=== PATIENT | male | born 1965 | race African-American/Black ===

== ENCOUNTER 2021-04-09 10:51 | Emergency (ER) | payer MEDICAID ==
[~2021-04-09] VITALS: Ht 175.3 cm; Wt 127.0 kg
[~2021-04-09 10:51] MED LIST: SPIR25TA PO
[2021-04-09 11:09] VITALS: BP 187/119
[2021-04-09 14:23] LABS: BASOPHILS % 0.9 % (0.0-2.0); EOSINOPHILS % 0.2 % (0.0-5.0); LYMPHOCYTES % 22.8 % (20.0-50.0); MEAN CORPUSCULAR HEMOGLOBIN 27.9 pg (28.0-32.0); MEAN CORPUSCULAR VOLUME 85.8 fL (80.0-94.0); MEAN PLATELET VOLUME 9.1 fl (7.4-10.4); MONOCYTES % 10.9 % (2.0-8.0); NEUTROPHILS % 65.2 % (40.0-76.0); PLATELET 190 x1000/uL (130-400); RED BLOOD CELL COUNT 5.01 mill/uL (4.7-6.1); RED CELL DISTRIBUTION WIDTH 15.2 % (11.6-14.6)
[2021-04-09 14:31] LABS: CHLORIDE 107 mEq/L (98-107)
[2021-04-09] MEDS ORDERED: FURO-151 MT (15:36)
[2021-04-09 20:46] LABS: CLARITY URINE CLOUDY (CLEAR); COLOR URINE DARK YELLOW (YELLOW); KETONES URINE TRACE (NEGATIVE); LEUKOCYTE ESTERASE URINE 1+ (NEGATIVE); NITRITE URINE NEGATIVE (NEGATIVE); OCCULT BLOOD URINE 1+ (NEGATIVE); PH URINE 5.5 (4.5-8.0); PROTEIN URINE 3+ (NEGATIVE); SPECIFIC GRAVITY URINE 1.027 (1.005-1.030)
== END 2021-04-09 15:57 | disposition left against medical advice (07) ==
LOC: ER 10:51
DX: I11.0 Hypertensive heart disease with heart failure (principal); I50.9 Heart failure, unspecified; E11.9 Type 2 diabetes mellitus without complications; I10 Essential (primary) hypertension; Z76.0 Encounter for issue of repeat prescription
CPT/HCPCS: 36415; 71045; 80053; 81003; 83880; 85025; 93005; 99285

== ENCOUNTER 2021-04-27 18:10 | Emergency (ER) | payer MEDICAID ==
[~2021-04-27] VITALS: Ht 175.3 cm; Wt 128.0 kg
[~2021-04-27 18:10] MED LIST changes: +FURO-151 MT
[2021-04-27] MEDS ORDERED: AMLODIPINE 10MG TABLET PO ONE (23:15)
[2021-04-27] MEDS ORDERED: FUROSEMIDE 40MG TABLET PO ONE (23:15)
[2021-04-27 23:46] LABS: BASOPHILS % 1.1 % (0.0-2.0); EOSINOPHILS % 0.4 % (0.0-5.0); HEMATOCRIT. 45.1 % (42.0-52.0); HEMOGLOBIN. 14.7 g/dL (14.0-18.0); LYMPHOCYTES % 47.3 % (20.0-50.0); MEAN CORPUSCULAR HEMOGLOBIN 27.7 pg (28.0-32.0); MEAN CORPUSCULAR VOLUME 84.9 fL (80.0-94.0); MEAN PLATELET VOLUME 9.2 fl (7.4-10.4); MONOCYTES % 10.3 % (2.0-8.0); NEUTROPHILS % 40.9 % (40.0-76.0); PLATELET 217 x1000/uL (130-400); RED BLOOD CELL COUNT 5.31 mill/uL (4.7-6.1); RED CELL DISTRIBUTION WIDTH 16.7 % (11.6-14.6)
[2021-04-28 00:06] LABS: CHLORIDE 107 mEq/L (98-107)
[2021-04-28] MEDS ORDERED: SPIR25TA PO (00:58)
[2021-04-28] MEDS ORDERED: FURO40TA5 MT (00:58)
[2021-04-28] MEDS ORDERED: SPIRONOLACTONE 25MG TABLET PO SCH (01:00)
[2021-04-28] MEDS ORDERED: POTASSIUM CHLORIDE 20MEQ TABLET SR PO ONE (01:15)
[2021-04-28] MEDS ORDERED: CARVEDILOL 3.125 MG TABLET PO ONE (01:30)
[2021-04-28 02:53] VITALS: BP 149/112
== END 2021-04-28 03:04 | disposition home or self-care (01) ==
LOC: ER 18:10
DX: I11.0 Hypertensive heart disease with heart failure (principal); I50.9 Heart failure, unspecified; R00.0 Tachycardia, unspecified; E11.9 Type 2 diabetes mellitus without complications; Z20.822 Contact with and (suspected) exposure to COVID-19; Z91.09 Other allergy status, other than to drugs and biological substances
CPT/HCPCS: 36415; 71045; 80053; 83880; 85025; 87426; 93005; 99285

== ENCOUNTER 2021-10-03 15:09 | Emergency (ER) | payer MEDICAID ==
[~2021-10-03] VITALS: Ht 175.3 cm; Wt 118.0 kg
[~2021-10-03 15:09] MED LIST changes: +CARV25TA47 MT; +FURO40TA5 MT; +LOSA50TA41 MT
[2021-10-03] MEDS ORDERED: FUROSEMIDE 40MG/4ML VIAL IV ONE (18:45)
[2021-10-03 19:04] LABS: BASOPHILS % 0.8 % (0.0-2.0); EOSINOPHILS % 0.6 % (0.0-5.0); HEMATOCRIT. 48.5 % (42.0-52.0); HEMOGLOBIN. 15.5 g/dL (14.0-18.0); LYMPHOCYTES % 39.2 % (20.0-50.0); MEAN CORPUSCULAR HEMOGLOBIN 28.5 pg (28.0-32.0); MEAN CORPUSCULAR VOLUME 89.1 fL (80.0-94.0); MEAN PLATELET VOLUME 9.1 fl (7.4-10.4); MONOCYTES % 9.1 % (2.0-8.0); NEUTROPHILS % 50.3 % (40.0-76.0); PLATELET 196 x1000/uL (130-400); RED BLOOD CELL COUNT 5.45 mill/uL (4.7-6.1); RED CELL DISTRIBUTION WIDTH 16.3 % (11.6-14.6)
[2021-10-03 19:21] LABS: CHLORIDE 109 mEq/L (98-107)
[2021-10-03 19:26] LABS: ETHANOL BLOOD < 10 mg/dL
[2021-10-03 23:00] VITALS: BP 146/100
[2021-10-03] MEDS ORDERED: FURO-151 MT (23:04)
[2021-10-03 23:26] LABS: *AMPHETAMINES SCREEN URINE NEGATIVE (NEGATIVE); *BARBITURATES SCREEN URINE NEGATIVE (NEGATIVE); *BENZODIAZEPINES SCREEN URINE NEGATIVE (NEGATIVE); *COCAINE SCREEN URINE NEGATIVE (NEGATIVE); CANNABINOID URINE SCREEN NEGATIVE (NEGATIVE); METHADONE URINE SCREEN NEGATIVE (NEGATIVE); OPIATES URINE SCREEN NEGATIVE (NEGATIVE); PHENCYCLIDINE URINE SCREEN NEGATIVE (NEGATIVE)
== END 2021-10-03 23:30 | disposition home or self-care (01) ==
LOC: ER 15:09
DX: I11.0 Hypertensive heart disease with heart failure (principal); I50.9 Heart failure, unspecified; J18.9 Pneumonia, unspecified organism; E11.9 Type 2 diabetes mellitus without complications; Z79.899 Other long term (current) drug therapy
CPT/HCPCS: 36415; 71045; 80053; 80305; 80320; 83735; 83880; 84484; 85025; 93005; 96374; 99285; J1940; Z7610; G0480

== ENCOUNTER 2021-10-14 15:20 | Inpatient (IN) | payer MEDICAID ==
[~2021-10-14] VITALS: Ht 177.8 cm; Wt 133.9 kg
[2021-10-15] MEDS ORDERED: FUROSEMIDE 40MG/4ML VIAL IV ONE (00:15)
[2021-10-15 00:31] LABS: BASOPHILS % 0.9 % (0.0-2.0); EOSINOPHILS % 0.9 % (0.0-5.0); HEMATOCRIT. 48.8 % (42.0-52.0); HEMOGLOBIN. 15.6 g/dL (14.0-18.0); LYMPHOCYTES % 43.9 % (20.0-50.0); MEAN CORPUSCULAR HEMOGLOBIN 28.5 pg (28.0-32.0); MEAN CORPUSCULAR VOLUME 89.1 fL (80.0-94.0); MEAN PLATELET VOLUME 9.1 fl (7.4-10.4); MONOCYTES % 9.7 % (2.0-8.0); NEUTROPHILS % 44.6 % (40.0-76.0); PLATELET 204 x1000/uL (130-400); RED BLOOD CELL COUNT 5.47 mill/uL (4.7-6.1); RED CELL DISTRIBUTION WIDTH 15.9 % (11.6-14.6)
[2021-10-15 00:37] LABS: CHLORIDE 102 mEq/L (98-107)
[2021-10-15 01:36] LABS: INR 1.3; PROTHROMBIN TIME 13.6 sec (9.6-11.0)
[2021-10-15 01:42] LABS: *AMPHETAMINES SCREEN URINE NEGATIVE (NEGATIVE); *BARBITURATES SCREEN URINE NEGATIVE (NEGATIVE); *BENZODIAZEPINES SCREEN URINE NEGATIVE (NEGATIVE); *COCAINE SCREEN URINE NEGATIVE (NEGATIVE); CANNABINOID URINE SCREEN NEGATIVE (NEGATIVE); METHADONE URINE SCREEN NEGATIVE (NEGATIVE); OPIATES URINE SCREEN NEGATIVE (NEGATIVE); PHENCYCLIDINE URINE SCREEN NEGATIVE (NEGATIVE)
[2021-10-15] MEDS ORDERED: DIPHENHYDRAMINE 50MG/ML VIAL IV PRN (02:00)
[2021-10-15] MEDS ORDERED: HYDRALAZINE 20MG/ML VIAL IV PRN (02:00)
[2021-10-15] MEDS ORDERED: ONDANSETRON HCL 4MG/2ML INJ IV PRN (02:00)
[2021-10-15] MEDS ORDERED: CLONIDINE 0.1MG TABLET PO PRN (02:00)
[2021-10-15] MEDS ORDERED: ZOLPIDEM TARTRATE 5MG TABLET PO PRN (02:00)
[2021-10-15] MEDS ORDERED: ACETAMINOPHEN 325MG TABLET PO PRN (02:00)
[2021-10-15] MEDS: SODIUM CHLORIDE 0.9% INJ 3ML FLUSH IVF SCH ×3 (05:30→21:29)
[2021-10-15 08:15] VITALS: BP 111/74
[2021-10-15 09:00] VITALS: BP 111/74
[2021-10-15] MEDS ORDERED: FUROSEMIDE 40MG/4ML VIAL IVP SCH (09:00)
[2021-10-15] MEDS ORDERED: SODIUM BICARBONATE 4% (2.4MEQ) 5ML VIAL IV ONE (09:26)
[2021-10-15] MEDS ORDERED: LIDOCAINE HCL/PF 1% 10 MG/ML 5ML VIAL ONE (09:26)
[2021-10-15] MEDS: FUROSEMIDE 40MG/4ML VIAL IVP SCH ×2 (11:31→17:46)
[2021-10-15] MEDS: CARVEDILOL 12.5MG TABLET PO SCH ×2 (11:32→21:00)
[2021-10-15] MEDS: LOSARTAN POTASSIUM 50 MG TABLET PO SCH (11:32)
[2021-10-15] MEDS: POTASSIUM CHLORIDE 20MEQ TABLET SR PO SCH (11:32)
[2021-10-15] MEDS: SPIRONOLACTONE 25MG TABLET PO SCH (11:33)
[2021-10-15 12:00] VITALS: BP 134/92
[2021-10-15 16:00] VITALS: BP 99/71
[2021-10-15] MEDS: METOLAZONE 10MG TABLET PO SCH (17:46)
[2021-10-15] MEDS: ENOXAPARIN 40MG/0.4ML SYR SUBCUT SCH (18:52)
[2021-10-15 20:00] VITALS: BP 103/59
[2021-10-16] VITALS: BP 110/65
[2021-10-16 04:00] VITALS: BP 101/60
[2021-10-16] MEDS: SODIUM CHLORIDE 0.9% INJ 3ML FLUSH IVF SCH ×3 (05:57→21:02)
[2021-10-16] MEDS: FUROSEMIDE 40MG/4ML VIAL IVP SCH ×2 (05:57→18:15)
[2021-10-16] MEDS: ENOXAPARIN 40MG/0.4ML SYR SUBCUT SCH ×2 (05:58→18:14)
[2021-10-16 08:00] VITALS: BP 119/79
[2021-10-16 08:42] LABS: CHLORIDE 101 mEq/L (98-107)
[2021-10-16 08:50] LABS: PHOSPHORUS 3.6 mg/dL (2.5-4.9)
[2021-10-16] MEDS: LOSARTAN POTASSIUM 50 MG TABLET PO SCH (09:00)
[2021-10-16] MEDS: METOLAZONE 10MG TABLET PO SCH (09:30)
[2021-10-16] MEDS: POTASSIUM CHLORIDE 20MEQ TABLET SR PO SCH ×3 (09:33→18:15)
[2021-10-16] MEDS: SPIRONOLACTONE 25MG TABLET PO SCH (09:34)
[2021-10-16] MEDS: CARVEDILOL 12.5MG TABLET PO SCH ×2 (09:34→21:00)
[2021-10-16] MEDS: ACETAMINOPHEN 325MG TABLET PO PRN ×2 (09:51→20:57)
[2021-10-16] MEDS ORDERED: MAGNESIUM 2 G PREMIX 50 ML IV NR (11:30)
[2021-10-16 12:00] VITALS: BP 93/60
[2021-10-16 16:00] VITALS: BP 94/64
[2021-10-16 20:00] VITALS: BP 95/58
[2021-10-17] VITALS (7 sets, daily range): BP systolic 74–113; BP diastolic 49–74
[2021-10-17] MEDS: SODIUM CHLORIDE 0.9% INJ 3ML FLUSH IVF SCH ×3 (06:06→20:43)
[2021-10-17] MEDS: ENOXAPARIN 40MG/0.4ML SYR SUBCUT SCH ×2 (06:06→17:01)
[2021-10-17] MEDS: FUROSEMIDE 40MG/4ML VIAL IVP SCH ×2 (06:06→17:00)
[2021-10-17 08:18] LABS: CHLORIDE 99 mEq/L (98-107)
[2021-10-17] MEDS: LOSARTAN POTASSIUM 50 MG TABLET PO SCH (08:49)
[2021-10-17] MEDS: CARVEDILOL 12.5MG TABLET PO SCH (08:49)
[2021-10-17] MEDS: METOLAZONE 10MG TABLET PO SCH (08:49)
[2021-10-17] MEDS: POTASSIUM CHLORIDE 20MEQ TABLET SR PO SCH ×2 (08:50→17:00)
[2021-10-17] MEDS: SPIRONOLACTONE 25MG TABLET PO SCH (08:50)
[2021-10-17] MEDS ORDERED: MIDODRINE HCL 5MG TABLET PO NR (12:45)
[2021-10-17] MEDS: CARVEDILOL 6.25 MG TABLET PO SCH (20:42)
[2021-10-18 00:09] VITALS: BP 97/70
[2021-10-18 05:34] VITALS: BP 97/65
[2021-10-18] MEDS: FUROSEMIDE 40MG/4ML VIAL IVP SCH ×2 (06:38→17:43)
[2021-10-18] MEDS: ENOXAPARIN 40MG/0.4ML SYR SUBCUT SCH ×2 (06:39→17:43)
[2021-10-18] MEDS: SODIUM CHLORIDE 0.9% INJ 3ML FLUSH IVF SCH ×2 (06:39→14:31)
[2021-10-18 07:09] LABS: CHLORIDE 98 mEq/L (98-107)
[2021-10-18 07:13] LABS: PHOSPHORUS 3.7 mg/dL (2.5-4.9)
[2021-10-18 07:40] LABS: BASOPHILS % 0.8 % (0.0-2.0); EOSINOPHILS % 1.9 % (0.0-5.0); HEMATOCRIT. 45.2 % (42.0-52.0); HEMOGLOBIN. 14.5 g/dL (14.0-18.0); LYMPHOCYTES % 49.2 % (20.0-50.0); MEAN CORPUSCULAR HEMOGLOBIN 28.5 pg (28.0-32.0); MEAN CORPUSCULAR VOLUME 88.5 fL (80.0-94.0); MEAN PLATELET VOLUME 9.4 fl (7.4-10.4); MONOCYTES % 11.1 % (2.0-8.0); PLATELET 176 x1000/uL (130-400); RED BLOOD CELL COUNT 5.11 mill/uL (4.7-6.1); RED CELL DISTRIBUTION WIDTH 15.7 % (11.6-14.6)
[2021-10-18 08:00] VITALS: BP 109/73
[2021-10-18] MEDS: CARVEDILOL 6.25 MG TABLET PO SCH (08:10)
[2021-10-18] MEDS: METOLAZONE 10MG TABLET PO SCH (08:13)
[2021-10-18] MEDS: SPIRONOLACTONE 25MG TABLET PO SCH (08:13)
[2021-10-18] MEDS: POTASSIUM CHLORIDE 20MEQ TABLET SR PO SCH ×2 (08:13→17:43)
[2021-10-18] MEDS ORDERED: LOSARTAN POTASSIUM 25 MG TABLET PO SCH (09:00)
[2021-10-18 12:00] VITALS: BP 98/67
[2021-10-18 16:00] VITALS: BP 105/70
[2021-10-18 20:00] VITALS: BP 112/81
== END 2021-10-18 21:15 | disposition home or self-care (01) | DRG 190 ==
LOC: ER 15:20 → 7WST 10-15 01:20 → ENRESERV 10-15 06:27
PROVIDERS: ADMIT Internal Medicine; ATTEND Internal Medicine
PROC: 0W9G3ZZ Drainage of Peritoneal Cavity, Percutaneous Approach (ICD-10-PCS; principal; 2021-10-15)
DX: I21.4 Non-ST elevation (NSTEMI) myocardial infarction (principal); J96.01 Acute respiratory failure with hypoxia; I50.23 Acute on chronic systolic (congestive) heart failure; I47.2 Ventricular tachycardia; R18.8 Other ascites; I42.8 Other cardiomyopathies; I11.0 Hypertensive heart disease with heart failure; E11.9 Type 2 diabetes mellitus without complications; E66.01 Morbid (severe) obesity due to excess calories; I95.2 Hypotension due to drugs; E80.6 Other disorders of bilirubin metabolism; Z20.822 Contact with and (suspected) exposure to COVID-19; Z87.891 Personal history of nicotine dependence; Z91.09 Other allergy status, other than to drugs and biological substances; Z68.41 Body mass index [BMI] 40.0-44.9, adult
CPT/HCPCS: 36415; 49083; 71045; 80048; 80053; 80305; 82962; 83735; 83880; 84100; 84484; 85025; 87426; 93306; 99291; J1650; J1940; J3475; J3490

== ENCOUNTER 2022-01-23 10:38 | Inpatient (IN) | payer MEDICAID ==
[~2022-01-23] VITALS: Ht 175.3 cm; Wt 142.0 kg
[~2022-01-23 10:38] MED LIST changes: -FURO40TA5 MT
[2022-01-23] MEDS ORDERED: FUROSEMIDE 40MG/4ML VIAL IV ONE (12:30)
[2022-01-23] MEDS ORDERED: ASPIRIN 81MG TABLET PO ONE (12:30)
[2022-01-23] MEDS: NITROGLYCERIN OINT 1GM/INCH UDPKT TD ONE ×2 (12:57→13:20)
[2022-01-23 13:08] LABS: BASOPHILS % 0.8 % (0.0-2.0); EOSINOPHILS % 1.2 % (0.0-5.0); HEMATOCRIT. 48.4 % (42.0-52.0); HEMOGLOBIN. 15.6 g/dL (14.0-18.0); LYMPHOCYTES % 34.4 % (20.0-50.0); MEAN CORPUSCULAR HEMOGLOBIN 29.2 pg (28.0-32.0); MEAN CORPUSCULAR VOLUME 90.3 fL (80.0-94.0); MEAN PLATELET VOLUME 9.2 fl (7.4-10.4); MONOCYTES % 11.9 % (2.0-8.0); NEUTROPHILS % 51.7 % (40.0-76.0); PLATELET 183 x1000/uL (130-400); RED BLOOD CELL COUNT 5.36 mill/uL (4.7-6.1); RED CELL DISTRIBUTION WIDTH 15.9 % (11.6-14.6)
[2022-01-23 13:14] LABS: CHLORIDE 104 mEq/L (98-107)
[2022-01-23] MEDS ORDERED: MAGNESIUM/ALUMINUM HYDROXIDE/SIMETHICONE 30ML UDC PO PRN (18:30)
[2022-01-23] MEDS ORDERED: NA PHOS,M-B/NA PHOS,DI-BA ENEMA 118ML PR PRN (18:30)
[2022-01-23] MEDS ORDERED: DEXTROSE 50% WATER 50ML SYRINGE IV PRN (18:30)
[2022-01-23] MEDS ORDERED: ACETAMINOPHEN 325MG TABLET PO PRN ×2 (18:30)
[2022-01-23] MEDS ORDERED: DOCUSATE SODIUM 100MG CAPSULE PO PRN (18:30)
[2022-01-23] MEDS ORDERED: ONDANSETRON HCL 4MG/2ML INJ IV PRN (18:30)
[2022-01-23] MEDS ORDERED: NITROGLYCERIN 0.4MG TABLET SL SL PRN (18:30)
[2022-01-23] MEDS ORDERED: CLONIDINE 0.1MG TABLET PO PRN (18:30)
[2022-01-23] MEDS ORDERED: IPRATROPIUM/ALBUTEROL 0.5-3(2.5)MG/3ML NEB NEB PRN (18:30)
[2022-01-23] MEDS ORDERED: ZOLPIDEM TARTRATE 5MG TABLET PO PRN (18:30)
[2022-01-23] MEDS ORDERED: KETOROLAC 15MG/ML VIAL IV PRN (18:30)
[2022-01-23] MEDS ORDERED: GUAIFENESIN 200MG/10ML SUGAR FREE UDC PO PRN (18:30)
[2022-01-23 19:15] LABS: T4 FREE 1.05 ng/dL (0.76-1.46)
[2022-01-23 19:43] LABS: VITAMIN B12 SERUM 433 pg/mL (211-911)
[2022-01-23] MEDS: INSULIN LISPRO 100 UNITS/ML SUBCUT SCH (21:00)
[2022-01-23] MEDS: FAMOTIDINE 20MG TABLET PO SCH (21:00)
[2022-01-23] MEDS: FUROSEMIDE 40MG/4ML VIAL IVP SCH (21:55)
[2022-01-23] MEDS: SPIRONOLACTONE 25MG TABLET PO SCH (21:55)
[2022-01-23] MEDS: ENOXAPARIN 30MG/0.3ML SYR SUBCUT SCH (21:56)
[2022-01-23] MEDS: BLOOD SUGAR DIAGNOSTIC STRIP TEST SCH (21:56)
[2022-01-24 00:02] LABS: CREATINE KINASE MB FRACTION 5.8 ng/mL (0.5-3.6)
[2022-01-24 04:03] LABS: HEPATITIS B SURFACE ANTIGEN NEGATIVE
[2022-01-24 06:11] LABS: BASOPHILS % 1.2 % (0.0-2.0); EOSINOPHILS % 1.2 % (0.0-5.0); HEMATOCRIT. 44.6 % (42.0-52.0); HEMOGLOBIN. 14.6 g/dL (14.0-18.0); MEAN CORPUSCULAR HEMOGLOBIN 29.4 pg (28.0-32.0); MEAN PLATELET VOLUME 9.2 fl (7.4-10.4); MONOCYTES % 14.1 % (2.0-8.0); NEUTROPHILS % 49.5 % (40.0-76.0); PLATELET 181 x1000/uL (130-400); RED BLOOD CELL COUNT 4.96 mill/uL (4.7-6.1); RED CELL DISTRIBUTION WIDTH 15.5 % (11.6-14.6)
[2022-01-24 06:23] LABS: CHLORIDE 107 mEq/L (98-107)
[2022-01-24 06:32] LABS: CREATINE KINASE MB FRACTION 5.5 ng/mL (0.5-3.6); PHOSPHORUS 3.7 mg/dL (2.5-4.9)
[2022-01-24] MEDS: BLOOD SUGAR DIAGNOSTIC STRIP TEST SCH ×4 (06:56→20:42)
[2022-01-24] MEDS: INSULIN LISPRO 100 UNITS/ML SUBCUT SCH ×4 (06:57→20:42)
[2022-01-24 10:00] VITALS: BP 147/107
[2022-01-24] MEDS ORDERED: KETOROLAC 15MG/ML VIAL IV PRN (10:45)
[2022-01-24] MEDS: ASPIRIN 325MG EC TABLET PO SCH (11:53)
[2022-01-24] MEDS: FUROSEMIDE 40MG/4ML VIAL IVP SCH ×2 (11:53→20:41)
[2022-01-24] MEDS: SPIRONOLACTONE 25MG TABLET PO SCH ×2 (11:54→20:41)
[2022-01-24] MEDS: FAMOTIDINE 20MG TABLET PO SCH ×2 (11:54→20:41)
[2022-01-24] MEDS: LOSARTAN POTASSIUM 50 MG TABLET PO SCH (11:54)
[2022-01-24] MEDS: ENOXAPARIN 30MG/0.3ML SYR SUBCUT SCH ×2 (11:56→20:42)
[2022-01-24 12:00] VITALS: BP 138/99
[2022-01-24] MEDS ORDERED: PNEUMOCOCCAL 23-VAL P-SAC VAC 0.5 ML IM ONE (13:15)
[2022-01-24 16:00] VITALS: BP 127/88
[2022-01-24 20:00] VITALS: BP 119/69
[2022-01-25] VITALS: BP 130/88
[2022-01-25 04:00] VITALS: BP 121/89
[2022-01-25] MEDS: BLOOD SUGAR DIAGNOSTIC STRIP TEST SCH ×2 (07:10→12:10)
[2022-01-25] MEDS: INSULIN LISPRO 100 UNITS/ML SUBCUT SCH ×2 (07:40→12:40)
[2022-01-25 08:00] VITALS: BP 147/109
[2022-01-25] MEDS: FAMOTIDINE 20MG TABLET PO SCH (09:13)
[2022-01-25] MEDS: ENOXAPARIN 30MG/0.3ML SYR SUBCUT SCH (09:13)
[2022-01-25] MEDS: FUROSEMIDE 40MG/4ML VIAL IVP SCH (09:13)
[2022-01-25] MEDS: ASPIRIN 325MG EC TABLET PO SCH (09:13)
[2022-01-25] MEDS: SPIRONOLACTONE 25MG TABLET PO SCH (09:13)
[2022-01-25] MEDS: LOSARTAN POTASSIUM 50 MG TABLET PO SCH (09:14)
[2022-01-25] MEDS ORDERED: ASPI-1406 MT (09:51)
[2022-01-25] MEDS ORDERED: LOSA50TA41 MT (09:51)
[2022-01-25] MEDS ORDERED: CARV25TA47 MT (09:51)
[2022-01-25] MEDS ORDERED: FURO-151 MT (09:51)
[2022-01-25] MEDS ORDERED: SPIR25TA PO (09:51)
[2022-01-25 10:49] VITALS: BP 147/109
[2022-01-25 12:00] VITALS: BP 150/100
== END 2022-01-25 17:50 | disposition home or self-care (01) | DRG 194 ==
LOC: ER 10:38 → MICUSO 17:00 → EDBEDREQ 17:06 → EDBEDREQTM 17:06 → 8WST 01-24 10:41
PROVIDERS: ADMIT Internal Medicine; ATTEND Internal Medicine
DX: I11.0 Hypertensive heart disease with heart failure (principal); I21.4 Non-ST elevation (NSTEMI) myocardial infarction; I27.20 Pulmonary hypertension, unspecified; E87.1 Hypo-osmolality and hyponatremia; R17 Unspecified jaundice; I50.41 Acute combined systolic (congestive) and diastolic (congestive) heart failure; E11.9 Type 2 diabetes mellitus without complications; Z20.822 Contact with and (suspected) exposure to COVID-19; F17.200 Nicotine dependence, unspecified, uncomplicated; Z88.8 Allergy status to other drugs, medicaments and biological substances; Z91.14 Patient's other noncompliance with medication regimen; Z79.899 Other long term (current) drug therapy; Z91.199 Patient's noncompliance with other medical treatment and regimen due to unspecified reason; E66.01 Morbid (severe) obesity due to excess calories; Z68.42 Body mass index [BMI] 45.0-49.9, adult
CPT/HCPCS: 36415; 71045; 80053; 80061; 82550; 82553; 82607; 82746; 82962; 83036; 83540; 83550; 83735; 83880; 84100; 84439; 84443; 84484; 85025; 86705; 86709; 86803; 87340; 87426; 90732; 93005; 93970; 99291; J1650; J1885; J1940